=== PATIENT | male | born 1995 | race American Indian/Alaskan Native ===

== ENCOUNTER 2018-07-09 10:08 | Inpatient (IN) | payer MEDICAID ==
[2018-07-09] MEDS ORDERED: TYLENOL PO ONE ×2 (11:18→14:55)
[2018-07-09] MEDS ORDERED: NACL 0.9% 1000 ML 2,000 ML IV ONE (11:18)
--- NOTE | 2018-07-09 11:19 | Emergency Department Report ---
ED General Adult HPI - General Chief complaint: Fever Stated complaint: WEAKNESS/NOT EATING/DRINKING Time Seen by Provider: 07/09/18 11:04 Source: patient, family, RN notes reviewed Mode of arrival: Wheelchair Limitations: Physical Limitation - History of Present Illness Initial comments: This is a 23-year-old gentleman. The patient is recently transported here from [place], according to the patient and guardian. He has a past medical history of multiple sclerosis, wheelchair-bound, optional bilateral lower extremity quadriplegia, and recently had a suprapubic Arroyo catheter placed, 3-4 days ago, by urology specialist, Dr. Pugh, at [facility]. The patient is currently taking cefuroxime. He apparently missed his dose last night. He is brought to the hospital with a family member for evaluation of reported fever. He reportedly had a fever this morning to 101.9, and reportedly had a fever yesterday to 102, taken orally. The patient denies headache, neck pain, chest pain, abdominal pain, shortness of breath. He is requesting to drink cranberry juice. He reports his lower extremity weakness is not a new, worseni ng or different. He is not certain if he has taken antipyretic medication. -: days(s) (1), This morning Severity scale (0 -10): 0 Consistency: intermittent Improves with: none Worsens with: none - Related Data Home Medications Medication Instructions Recorded Confirmed Last Taken Cyclobenzaprine [Flexeril] 10 mg PO TID 07/09/18 07/09/18 Unknown Divalproex ER [DepaKOTE ER] 500 mg PO BID 07/09/18 07/09/18 07/09/18 HYDROcodone/APAP 5-325 [[place] 0.5 - 1 each PO Q6HR PRN 07/09/18 07/09/18 Unknown 5/325] Sertraline [Zoloft] 50 mg PO QDAY 07/09/18 07/09/18 07/09/18 cefUROXime [Ceftin] 500 mg PO BID 07/09/18 07/09/18 07/09/18 Allergies Allergy/AdvReac Type Severity Reaction Status Date / Time No Known Allergies Allergy Unverified 07/09/18 10:14 ED Review of Systems ROS: Stated complaint: WEAKNESS/NOT EATING/DRINKING Other details as noted in HPI Constitutional: fever. denies: chills ENT: denies: epistaxis Respiratory: denies: cough Cardiovascular: denies: chest pain Gastrointestinal: denies: abdominal pain, nausea, vomiting Musculoskeletal: denies: back pain Neurological: weakness ED Past Medical Hx - Past Medical History Previous Medical History?: Yes Additional medical history: MS - Surgical History Past Surgical History?: Yes Additional Surgical History: Suprapubic catheter placement 2019 - Social History Smoking Status: Former Smoker Substance Use Type: None - Medications Home Medications: Home Medications Medication Instructions Recorded Confirmed Last Taken Type Cyclobenzaprine [Flexeril] 10 mg PO TID 07/09/18 07/09/18 Unknown History Divalproex ER [DepaKOTE ER] 500 mg PO BID 07/09/18 07/09/18 07/09/18 History HYDROcodone/APAP 5-325 [[place] 0.5 - 1 each PO Q6HR PRN 07/09/18 07/09/18 Unknown History 5/325] Sertraline [Zoloft] 50 mg PO QDAY 07/09/18 07/09/18 07/09/18 History cefUROXime [Ceftin] 500 mg PO BID 07/09/18 07/09/18 07/09/18 History ED Physical Exam - General Limitations: Physical Limitation General appearance: alert, in no apparent distress - Head Head exam: Present: atraumatic, normocephalic - Eye Eye exam: Present: normal appearance, EOMI. Absent: nystagmus - ENT ENT exam: Present: normal exam, normal orophraynx, mucous membranes moist, normal external ear exam - Neck Neck exam: Present: normal inspection, full ROM. Absent: tenderness, meningismus - Respiratory Respiratory exam: Present: normal lung sounds bilaterally. Absent: respiratory distress - Cardiovascular Cardiovascular Exam: Present: normal rhythm, tachycardia, normal heart sounds. Absent: systolic murmur, diastolic murmur, rubs, gallop - GI/Abdominal GI/Abdominal exam: Present: soft. Absent: distended, tenderness, guarding, rebound, rigid, pulsatile mass - Rectal Rectal exam: Present: deferred - Extremities Exam Extremities exam: Present: normal inspection, full ROM (there is weakness in the bilateral lower extremities. There is fatigable bilateral lower extremity clonus in the bilateral lower extremities), other (2+ pulses noted in the bilateral upper, lower extremities. Compartments soft. No long bony tend erness. The pelvis is stable.). Absent: calf tenderness - Back Exam Back exam: Present: normal inspection, full ROM. Absent: tenderness, CVA tenderness (R), paraspinal tenderness, vertebral tenderness - Neurological Exam Neurological exam: Present: alert, motor sensory deficit, other (5 out of 5 strength bilateral upper extremities. Sensation intact to light touch bilateral upper extremities. There is no facial droop. The tongue is midline. Extraocular movements are intact bilaterally.) - Psychiatric Psychiatric exam: Present: normal affect, normal mood - Skin Skin exam: Present: warm, dry, intact, normal color. Absent: rash ED Course Vital Signs 07/09/18 07/09/18 07/09/18 10:20 12:00 13:14 Temperature 98.2 F 99.9 F H Pulse Rate 109 H 101 H Respiratory 18 24 Rate Blood Pressure 108/70 Blood Pressure 111/72 [Left] O2 Sat by Pulse 98 96 Oximetry 07/09/18 14:48 Temperature 103.6 F H Pulse Rate 80 Respiratory 16 Rate Blood Pressure Blood Pressure 141/81 [Left] O2 Sat by Pulse 98 Oximetry - Reevaluation(s) Reevaluation #1: 07/09/18 12:38 Differential diagnosis, including but not limited to: Pneumonia, urinary tract infection, intra-abdominal abscess, bacteremia, viremia Assessment and plan: 23-year-old gentleman status post recent suprapubic Arroyo catheter placement, with reported fever. The patient is afebrile, with tachycardia in this emergency room, otherwise, no significant physical exam findings. He is resting comfortably, and in no acute distress. We will obtain basic laboratory studies, urinalysis, x-ray of the chest, CT scan of the abdomen pelvis, and we will reassess. The patient was strongly encouraged to remain compliant with his medications. The patient verbalized understanding in his own words. Reevaluation #2: 07/09/18 13:03 Patient reportedly difficult stick for the phlebotomy team. Nursing team was able to establish a 20-gauge IV in the left hand. I have made multiple requests of the phlebotomy staff to please obtain the patient's laboratory studies. I have also brought this nurse's attention, to secure blood acquisition. Reevaluation #3: 07/09/18 13:34 Nursing T reported to me that patient removed/discontinued his IV, probably by accident. I went back to reevaluate the patient, and he was noted to be moving his upper extremities, and was able to stop moving his upper extremities in response to verbal direction. I have advised the patient to refrain from jerking, moving his upper extremities, and have recommended IV fluids, as well as antibiotics. Reevaluation #4: 07/09/18 14:07 Dr Cates to admit patient will remain in er pending ct results i have agreed to contact the covering urology service back if the ct results show any condition that would require emergent surgical intervention Reevaluation #5: 07/09/18 15:28 CT scan of the abdomen and pelvis suggests left-sided pyelonephritis, without abscess. Resting comfortably, and in no acute distress. Family is updated. - Consultations Consultation #1: 07/09/18 13:51 Discussed case and findings with urology on-call, Dr. Lewis, whose group agrees to follow in consultation. ED Medical Decision Making - Lab Data Result diagrams: 07/09/18 13:03 07/09/18 12:16 Vital Signs 07/09/18 10:20 Temperature 98.2 F Pulse Rate 109 H Respiratory 18 Rate Blood Pressure 108/70 O2 Sat by Pulse 98 Oximetry - Radiology Data Radiology results: pending, report reviewed X-ray the chest is negative for acute disease Critical care attestation.: If time is entered above; I have spent that time in minutes in the direct care of this critically ill patient, excluding procedure time. ED Disposition Clinical Impression: SIRS (systemic inflammatory response syndrome), Postoperative fever Disposition: OP ADMIT IP TO THIS HOSP Is pt being admited?: Yes Condition: Good
--- NOTE | 2018-07-09 12:16 | XRay Report ---
PORTABLE CHEST INDICATION: History of fever. COMPARISON: None similar at this institution. FINDINGS: Portable, frontal chest radiograph suggest normal cardiomediastinal silhouette. Clear lungs. Right hemidiaphragm slightly higher than the left. Intact bones. CONCLUSION: No acute disease. Thank you for the opportunity to participate in this patient's care.
[2018-07-09 12:53] LABS: Bacteria,Urine 2+ /HPF (Negative); Bilirubin,Urine NEG (Negative); Blood,Urine MOD (Negative); Color,Urine Yellow (Yellow); Mucus,Urine FEW /HPF; Urobilinogen,Urine < 2.0 mg/dL (<2.0)
[2018-07-09 13:07] LABS: Alanine Aminotransferase 12 units/L (7-56); Albumin 4.2 g/dL (3.9-5); BUN/Creatinine Ratio 13; Blood Urea Nitrogen 9 mg/dL (9-20); Calcium 8.9 mg/dL (8.4-10.2); Hemolysis Index 25
[2018-07-09 13:25] LABS: Basophils % (Auto) 0.2 % (0.0-1.8); Eosinophils % (Auto) 0.1 % (0.0-4.3); Hematocrit 37.8 % (35.5-45.6); Hemoglobin 12.9 gm/dl (11.8-15.2); Lymphocytes # (Auto) 1.3 K/mm3 (1.2-5.4); Lymphocytes % (Auto) 8.8 % (13.4-35.0); Mean Corpuscular HGB Conc 34 % (32-34); Mean Corpuscular Volume 80 fl (84-94); Monocytes # (Auto) 2.1 K/mm3 (0.0-0.8); Monocytes % (Auto) 13.9 % (0.0-7.3); Platelet Count 219 K/mm3 (140-440); Red Blood Count 4.72 M/mm3 (3.65-5.03); Red Cell Distribution Width 15.1 % (13.2-15.2)
[2018-07-09] MEDS ORDERED: ROCEPHIN/NS 1 GM/50 ML 1 GM/50 ML BAG IV ONE (13:34)
[2018-07-09] MEDS ORDERED: TYLENOL ONE (14:56)
--- NOTE | 2018-07-09 15:06 | Cat Scan Report ---
CT ABDOMEN AND PELVIS WITH CONTRAST INDICATION: History of fever, recent suprapubic Arroyo catheter. COMPARISON: None similar. FINDINGS: Abdomen and pelvis CT performed following intravenous administration of 100 cc of Omnipaque 300. LUNG BASES: Nonspecific distal esophageal wall prominence/thickening, not excluded for gastroesophageal reflux and/or hiatal hernia, amongst others. ABDOMEN: Liver, spleen, gallbladder, pancreas, adrenals, aorta and IVC within normal limits. No hydronephrosis, though heterogeneous left renal cortical enhancement with somewhat striated appearance noted, most involving its upper to mid renal aspect as on delayed series 4, axial images 19-30 with the largest confluent area superolaterally approximately 4 cm on axial image 23. Other etiologies however, including neoplastic/lymphoma may occasionally mimic this appearance. Right kidney appears grossly within normal limits. Nonopacified GI tract evaluation limited, though small bowel nonobstructive. Cecum somewhat low-lying in the right lower quadrant. Normal appendix. Moderate colonic stool, greatest proximally/possible constipation. No ascites or definite size significant adenopathy. Small fat containing umbilical hernia with a transverse neck of 1.5 cm, axial image 102. PELVIS: Urinary bladder decompressed around 2 Arroyo catheter balloons, one from a suprapubic catheter with mild adjacent iatrogenic changes as stranding and minimal anterior wall soft tissue air while the other catheter inserted through the urethra. Grossly unremarkable rectosigmoid. No free fluid or significant adenopathy. Intact bones. CONCLUSION: 1. Heterogeneous left kidney, presumably pyelonephritis in the given setting, as described above. 2. Various other findings as distal esophageal thickening, constipation and 2 Arroyo catheters, as above. Thank you for the opportunity to participate in this patient's care.
--- NOTE | 2018-07-09 17:17 | Consultation ---
History of Present Illness - Reason for Consult Consult date: 07/09/18 - History of Present Illness This is a 23-year-old gentleman. The patient is recently transported here from [place], according to the patient and guardian. He has a past medical history of multiple sclerosis, wheelchair-bound, optional bilateral lower extremity quadriplegia, and recently had a suprapubic [place] catheter placed 07-06-[address] Clinton in our group at [facility]. The patient is currently taking cefuroxime. He apparently missed his dose last night. He is brought to the hospital with a family member for evaluation of reported fever. He reportedly had a fever this morning to 101.9, and reportedly had a fever yesterday to 102, taken orally. MOther at bedside spt clamped, canales draining fredrick urine abd soft CTAP - left kidney inflammation a/P multiple sclerosis neurogenic bladder with canales & spt conservative mgmt Medications and Allergies Allergies Allergy/AdvReac Type Severity Reaction Status Date / Time No Known Allergies Allergy Unverified 07/09/18 10:14 Home Medications Medication Instructions Recorded Confirmed Last Taken Type Cyclobenzaprine [Flexeril] 10 mg PO TID 07/09/18 07/09/18 Unknown History Divalproex ER [DepaKOTE ER] 500 mg PO BID 07/09/18 07/09/18 07/09/18 History HYDROcodone/APAP 5-325 [[place] 0.5 - 1 each PO Q6HR PRN 07/09/18 07/09/18 Unknown History 5/325] Sertraline [Zoloft] 50 mg PO QDAY 07/09/18 07/09/18 07/09/18 History cefUROXime [Ceftin] 500 mg PO BID 07/09/18 07/09/18 07/09/18 History traZODone 100 mg PO HS 07/09/18 07/09/18 Unknown History Exam - Constitutional Vitals: Temp Pulse Resp BP Pulse Ox 102.9 F H 125 H 20 115/63 100 07/09/18 15:47 07/09/18 15:47 07/09/18 15:47 07/09/18 15:47 07/09/18 15:47 Results - Labs CBC & Chem 7: 07/09/18 13:03 07/09/18 12:16 Labs: Abnormal lab results 07/09/18 07/09/18 07/09/18 Range/Units 11:37 12:16 12:16 WBC (4.5-11.0) K/mm3 MCV (84-94) fl MCH (28-32) pg Lymph % (Auto) (13.4-35.0) % [place] % (Auto) (0.0-7.3) % [place] # (0.0-0.8) K/mm3 Seg Neutrophils % (40.0-70.0) % Seg Neutrophils # (1.8-7.7) K/mm3 Chloride 95.1 L (98-107) mmol/L Creatinine 0.7 L (0.8-1.5) mg/dL Lactic Acid (0.7-2.0) mmol/L Magnesium 2.40 H (1.7-2.3) mg/dL Total Creatine Kinase 1261 H (55-170) units/L Urine WBC (Auto) 109.0 H (0.0-6.0) /HPF Valproic Acid 38.7 L (50-100) ug/mL 07/09/18 07/09/18 07/09/18 Range/Units 13:03 13:03 15:50 WBC 15.3 H (4.5-11.0) K/mm3 MCV 80 L (84-94) fl MCH 27 L (28-32) pg Lymph % (Auto) 8.8 L (13.4-35.0) % [place] % (Auto) 13.9 H (0.0-7.3) % [place] # 2.1 H (0.0-0.8) K/mm3 Seg Neutrophils % 77.0 H (40.0-70.0) % Seg Neutrophils # 11.8 H (1.8-7.7) K/mm3 Chloride (98-107) mmol/L Creatinine (0.8-1.5) mg/dL Lactic Acid 2.60 H* 2.10 H* (0.7-2.0) mmol/L Magnesium (1.7-2.3) mg/dL Total Creatine Kinase (55-170) units/L Urine WBC (Auto) (0.0-6.0) /HPF Valproic Acid (50-100) ug/mL
[2018-07-09] MEDS ORDERED: ZOFRAN IV PRN (19:37)
[2018-07-09] MEDS ORDERED: DILAUDID IV PRN (19:37)
[2018-07-09] MEDS ORDERED: SODIUM CHLORIDE FLUSH SYRINGE 10 ML IV PRN (19:37)
[2018-07-09] MEDS: D5NS 1,000 ML IV SCH (20:47)
[2018-07-09] MEDS: ROCEPHIN/NS 2 GM/100 ML 2 GM/100 ML BAG IV SCH (20:48)
[2018-07-09] MEDS: PEPCID IV SCH (21:03)
[2018-07-09] MEDS: SODIUM CHLORIDE FLUSH SYRINGE 10 ML IV SCH (22:03)
[2018-07-09] MEDS: TYLENOL PO PRN (23:40)
[2018-07-10 06:56] LABS: Hematocrit 37.7 % (35.5-45.6); Hemoglobin 12.6 gm/dl (11.8-15.2); Mean Corpuscular HGB Conc 34 % (32-34); Mean Corpuscular Volume 80 fl (84-94); Platelet Count 226 K/mm3 (140-440); Red Cell Distribution Width 15.6 % (13.2-15.2)
[2018-07-10 07:18] LABS: Alanine Aminotransferase 17 units/L (7-56); Albumin 3.5 g/dL (3.9-5); BUN/Creatinine Ratio 10; Blood Urea Nitrogen 6 mg/dL (9-20); Calcium 8.6 mg/dL (8.4-10.2); Hemolysis Index 6
--- NOTE | 2018-07-10 07:38 | Event Note ---
Date: 07/09/18 See dictated H./p in reports Severe UTI Multiple sclerosis with paraplegia SPC catheter
[2018-07-10 08:40] LABS: Band Neutrophils # (Manual) 1.4 K/mm3; Eosinophils % (Manual) 0 % (0.0-4.3); Total Cells Counted 100
[2018-07-10 08:50] LABS: Basophils % (Manual) 0 % (0.0-1.8)
[2018-07-10 08:51] LABS: RBC Morphology Normal
[2018-07-10] MEDS: D5NS 1,000 ML IV SCH (09:32)
[2018-07-10] MEDS: PEPCID IV SCH ×2 (09:34→21:44)
[2018-07-10] MEDS: SODIUM CHLORIDE FLUSH SYRINGE 10 ML IV SCH ×2 (09:35→21:47)
--- NOTE | 2018-07-10 09:49 | History and Physical Report ---
CHIEF COMPLAINT: Fever for 2 days. HISTORY OF PRESENT ILLNESS: A 23-year-old -[place] male with history of severe multiple sclerosis, resulting in paraplegia and neurogenic bladder followed by suprapubic catheter, comes in for fever of 2 days' duration. The patient had a Arroyo catheter placed 3-4 days ago by Urology, Dr. Clinton. The patient is on cefuroxime for urinary tract infection. The patient has been having high-grade fever since yesterday. No chills. The patient has lower extremity weakness secondary to multiple sclerosis and is wheelchair bound. PAST MEDICAL HISTORY: Past medical history is significant for multiple sclerosis and neurogenic bladder. PAST SURGICAL HISTORY: Suprapubic catheter placement in 2019. SOCIAL HISTORY: Former smoker. FAMILY HISTORY: Noncontributory. REVIEW OF SYSTEMS: Review of systems is significant for high grade fever. PHYSICAL EXAMINATION: GENERAL: Young male, cooperative during examination. VITAL SIGNS: Blood pressure is 141/81, temperature is 103.6, pulse is 80, respirations are 16. HEENT: Unremarkable. Pupils are equal and reactive. NECK: Supple, no lymphadenopathy, no thyromegaly. LUNGS: Clear to auscultation and percussion. Good air entry. CARDIOVASCULAR: S1, S2 heard. No gallop, no murmur, no rub. Apical impulse in left fifth intercostal space and midclavicular line. ABDOMEN: Soft and benign. No hepatosplenomegaly. No guarding, no rigidity. Suprapubic catheter is in place. EXTREMITIES: 1/5 power in both lower extremities. Reflexes are decreased. SKIN: Normal. LABORATORY DATA AND IMAGING STUDIES: Labs are significant for lactic acid of 2.1 and the white count of 15,300. Platelet count is 219,000. Urine shows white blood cells of 109. Abdominal CAT scan shows left kidney, possible pyelonephritis. ASSESSMENT AND PLAN: 1. Sepsis secondary to urinary tract infection. The patient is initiated on ceftriaxone, pending urine cultures. 2. Neurogenic bladder. Urology consulted. 3. Elevated lactic acid secondary to sepsis. 4. Rhabdomyolysis, mild. IV fluids for now. 5. Deep venous thrombosis prophylaxis. Lovenox 30 mg subcutaneous daily. [facility]# [id number] VSM/NTS
[2018-07-10] MEDS: MIRALAX 3350 PO SCH ×2 (12:14→21:46)
--- NOTE | 2018-07-10 12:34 | Progress Note ---
Assessment and Plan Assessment and plan: Complicated UTI/Pyelonephritis left Admitted to Med/Surg [facility] patient evaluated by Dr. Lewis Consult ID Physician since complicated UTI/pyelo with suprapubic Urine culture, growing gram-negative rods Possible sepsis Blood cultures drawn Multiple sclerosis with neurogenic bladder, impaired vision, paraplegia. supportive care Neurogenic bladder, s/p suprapubic catheter placed Full code status History Interval history: Fever, has suprapubic catheter Hospitalist Physical - Physical exam Narrative exam: GEN: Not in acute distress, HEENT: Normocephalic, atraumatic, Neck: supple, No JVD Lungs: Clear to auscultation bilaterally, Abd:soft, non tender, suprapubic catheter, normal bowel sounds Ext: No edema, no clubbing, no cyanosis Neuro:Awake,alert,oriented x 3, paraplegia from MS, Impaired vision Skin:No rash - Constitutional Vitals: Temp Pulse Resp BP Pulse Ox 97.7 F 69 16 107/80 100 07/10/18 05:43 07/10/18 05:43 07/10/18 05:43 07/10/18 05:43 07/10/18 05:43 Results - Labs CBC & Chem 7: 07/10/18 06:19 07/10/18 06:19 Labs: Laboratory Last Values WBC 8.7 K/mm3 (4.5-11.0) 07/10/18 06:19 RBC 4.70 M/mm3 (3.65-5.03) 07/10/18 06:19 Hgb 12.6 gm/dl (11.8-15.2) 07/10/18 06:19 Hct 37.7 % (35.5-45.6) 07/10/18 06:19 MCV 80 fl (84-94) L 07/10/18 06:19 MCH 27 pg (28-32) L 07/10/18 06:19 MCHC 34 % (32-34) 07/10/18 06:19 RDW 15.6 % (13.2-15.2) H 07/10/18 06:19 Plt Count 226 K/mm3 (140-440) 07/10/18 06:19 Lymph % (Auto) 8.8 % (13.4-35.0) L 07/09/18 13:03 [place] % (Auto) Pastrycook'S Assistant 07/10/18 06:19 Eos % (Auto) 0.1 % (0.0-4.3) 07/09/18 13:03 Baso % (Auto) 0.2 % (0.0-1.8) 07/09/18 13:03 Lymph # 1.3 K/mm3 (1.2-5.4) 07/09/18 13:03 [place] # 2.1 K/mm3 (0.0-0.8) H 07/09/18 13:03 Eos # 0.0 K/mm3 (0.0-0.4) 07/09/18 13:03 Baso # 0.0 K/mm3 (0.0-0.1) 07/09/18 13:03 Add Manual Diff Complete 07/10/18 06:19 Total Counted 100 07/10/18 06:19 Seg Neutrophils % 77.0 % (40.0-70.0) H 07/09/18 13:03 Seg Neuts % (Manual) 59.0 % (40.0-70.0) 07/10/18 06:19 Band Neutrophils % 16.0 % 07/10/18 06:19 Lymphocytes % (Manual) 12.0 % (13.4-35.0) L 07/10/18 06:19 Reactive Lymphs % (Man) 0 % 07/10/18 06:19 Monocytes % (Manual) 13.0 % (0.0-7.3) H 07/10/18 06:19 Eosinophils % (Manual) 0 % (0.0-4.3) 07/10/18 06:19 Basophils % (Manual) 0 % (0.0-1.8) 07/10/18 06:19 Metamyelocytes % 0 % 07/10/18 06:19 Myelocytes % 0 % 07/10/18 06:19 Promyelocytes % 0 % 07/10/18 06:19 Blast Cells % 0 % 07/10/18 06:19 Nucleated RBC % Not Reportable 07/10/18 06:19 Seg Neutrophils # 11.8 K/mm3 (1.8-7.7) H 07/09/18 13:03 Seg Neutrophils # Man 5.1 K/mm3 (1.8-7.7) 07/10/18 06:19 Band Neutrophils # 1.4 K/mm3 07/10/18 06:19 Lymphocytes # (Manual) 1.0 K/mm3 (1.2-5.4) L 07/10/18 06:19 Abs React Lymphs (Man) 0.0 K/mm3 07/10/18 06:19 Monocytes # (Manual) 1.1 K/mm3 (0.0-0.8) H 07/10/18 06:19 Eosinophils # (Manual) 0.0 K/mm3 (0.0-0.4) 07/10/18 06:19 Basophils # (Manual) 0.0 K/mm3 (0.0-0.1) 07/10/18 06:19 Metamyelocytes # 0.0 K/mm3 07/10/18 06:19 Myelocytes # 0.0 K/mm3 07/10/18 06:19 Promyelocytes # 0.0 K/mm3 07/10/18 06:19 Blast Cells # 0.0 K/mm3 07/10/18 06:19 WBC Morphology Not Reportable 07/10/18 06:19 Hypersegmented Neuts Not Reportable 07/10/18 06:19 Hyposegmented Neuts Not Reportable 07/10/18 06:19 Hypogranular Neuts Not Reportable 07/10/18 06:19 Smudge Cells Not Reportable 07/10/18 06:19 Toxic Granulation Not Reportable 07/10/18 06:19 Toxic Vacuolation Not Reportable 07/10/18 06:19 Dohle Bodies Not Reportable 07/10/18 06:19 Pelger-Huet Anomaly Not Reportable 07/10/18 06:19 Sammi Rods Not Reportable 07/10/18 06:19 Platelet Estimate Not Reportable 07/10/18 06:19 Clumped Platelets Not Reportable 07/10/18 06:19 Plt Clumps, EDTA Not Reportable 07/10/18 06:19 Large Platelets Not Reportable 07/10/18 06:19 Giant Platelets Not Reportable 07/10/18 06:19 Platelet Satelliting Not Reportable 07/10/18 06:19 Plt Morphology Comment Not Reportable 07/10/18 06:19 RBC Morphology Normal 07/10/18 06:19 Dimorphic RBCs Not Reportable 07/10/18 06:19 Polychromasia Not Reportable 07/10/18 06:19 Hypochromasia Not Reportable 07/10/18 06:19 Poikilocytosis Not Reportable 07/10/18 06:19 Anisocytosis Not Reportable 07/10/18 06:19 Microcytosis Not Reportable 07/10/18 06:19 Macrocytosis Not Reportable 07/10/18 06:19 Spherocytes Not Reportable 07/10/18 06:19 Pappenheimer Bodies Not Reportable 07/10/18 06:19 Sickle Cells Not Reportable 07/10/18 06:19 Target Cells Not Reportable 07/10/18 06:19 Tear Drop Cells Not Reportable 07/10/18 06:19 Ovalocytes Not Reportable 07/10/18 06:19 Helmet Cells Not Reportable 07/10/18 06:19 [place] Bodies Not Reportable 07/10/18 06:19 [place] Rings Not Reportable 07/10/18 06:19 [place] Cells Not Reportable 07/10/18 06:19 Bite Cells Not Reportable 07/10/18 06:19 Crenated Cell Not Reportable 07/10/18 06:19 Elliptocytes Not Reportable 07/10/18 06:19 Acanthocytes (Spur) Not Reportable 07/10/18 06:19 Rouleaux Not Reportable 07/10/18 06:19 Hemoglobin C Crystals Not Reportable 07/10/18 06:19 Schistocytes Not Reportable 07/10/18 06:19 Malaria parasites Not Reportable 07/10/18 06:19 [place] Bodies Not Reportable 07/10/18 06:19 Hem Pathologist Commnt No 07/10/18 06:19 Sodium 143 mmol/L (137-145) 07/10/18 06:19 Potassium 3.6 mmol/L (3.6-5.0) 07/10/18 06:19 Chloride 101.5 mmol/L (98-107) 07/10/18 06:19 Carbon Dioxide 30 mmol/L (22-30) 07/10/18 06:19 Anion Gap 15 mmol/L 07/10/18 06:19 BUN 6 mg/dL (9-20) L 07/10/18 06:19 Creatinine 0.6 mg/dL (0.8-1.5) L 07/10/18 06:19 Estimated GFR > 60 ml/min 07/10/18 06:19 BUN/Creatinine Ratio 10 % 07/10/18 06:19 Glucose 109 mg/dL (75-100) H 07/10/18 06:19 Lactic Acid 2.10 mmol/L (0.7-2.0) H* 07/09/18 17:07 Calcium 8.6 mg/dL (8.4-10.2) 07/10/18 06:19 Magnesium 2.40 mg/dL (1.7-2.3) H 07/09/18 12:16 Total Bilirubin 0.20 mg/dL (0.1-1.2) 07/10/18 06:19 AST 29 units/L (5-40) 07/10/18 06:19 ALT 17 units/L (7-56) 07/10/18 06:19 Alkaline Phosphatase 60 units/L (35-129) 07/10/18 06:19 Total Creatine Kinase 1261 units/L (55-170) H 07/09/18 12:16 Total Protein 7.0 g/dL (6.3-8.2) 07/10/18 06:19 Albumin 3.5 g/dL (3.9-5) L 07/10/18 06:19 Albumin/Globulin Ratio 1.0 % 07/10/18 06:19 Urine Color Yellow (Yellow) 07/09/18 11:37 Urine Turbidity Cloudy (Clear) 07/09/18 11:37 Urine pH 7.0 (5.0-7.0) 07/09/18 11:37 Ur Specific [place] 1.008 (1.003-1.030) 07/09/18 11:37 Urine Protein 100 mg/dl mg/dL (Negative) 07/09/18 11:37 Urine Glucose (UA) Neg mg/dL (Negative) 07/09/18 11:37 Urine Ketones Neg mg/dL (Negative) 07/09/18 11:37 Urine Blood Mod (Negative) 07/09/18 11:37 Urine Nitrite Neg (Negative) 07/09/18 11:37 Urine Bilirubin Neg (Negative) 07/09/18 11:37 Urine Urobilinogen < 2.0 mg/dL (<2.0) 07/09/18 11:37 Ur Leukocyte Esterase Lg (Negative) 07/09/18 11:37 Urine WBC (Auto) 109.0 /HPF (0.0-6.0) H 07/09/18 11:37 Urine RBC (Auto) 28.0 /HPF (0.0-6.0) 07/09/18 11:37 U Epithel Cells (Auto) < 1.0 /HPF (0-13.0) 07/09/18 11:37 Urine Bacteria (Auto) 2+ /HPF (Negative) 07/09/18 11:37 Urine Mucus Few /HPF 07/09/18 11:37 Urine Yeast (Budding) 2+ /HPF 07/09/18 11:37 Valproic Acid 38.7 ug/mL (50-100) L 07/09/18 12:16
[2018-07-10] MEDS: ROCEPHIN/NS 2 GM/100 ML 2 GM/100 ML BAG IV SCH (20:32)
[2018-07-10] MEDS: LOVENOX SUB-Q SCH (21:44)
[2018-07-11] MEDS: TYLENOL PO PRN (00:45)
[2018-07-11 06:35] LABS: Hematocrit 36.2 % (35.5-45.6); Hemoglobin 12.3 gm/dl (11.8-15.2); Mean Corpuscular HGB Conc 34 % (32-34); Mean Corpuscular Volume 80 fl (84-94); Platelet Count 259 K/mm3 (140-440); Red Blood Count 4.55 M/mm3 (3.65-5.03); Red Cell Distribution Width 15.1 % (13.2-15.2)
[2018-07-11 07:09] LABS: BUN/Creatinine Ratio 12; Blood Urea Nitrogen 6 mg/dL (9-20); Calcium 8.8 mg/dL (8.4-10.2); Hemolysis Index 3
--- NOTE | 2018-07-11 09:18 | Progress Note ---
Assessment and Plan Assessment and plan: Complicated UTI/Pyelonephritis left Admitted to Med/Surg Continue Braydonmafaraz patient evaluated by Dr. Lewis Consult ID Physician since complicated UTI/pyelo with suprapubic Urine culture, growing gram-negative rods, Pseudomonas aurigonosa Start Cefepime, discontinue ceftriaxone Sepsis Blood cultures drawn Start Cefepime Multiple sclerosis with neurogenic bladder, impaired vision, paraplegia. supportive care Neurogenic bladder, s/p suprapubic catheter placed 07/06/[address] Clinton, clamped. another canales catheter in penis to draining bag. Hypokalemia. Replace orally and recheck Full code status History Interval history: Still having Fever, has suprapubic catheter clamped and canales catheter in urethra Hospitalist Physical - Physical exam Narrative exam: GEN: Not in acute distress, HEENT: Normocephalic, atraumatic, Neck: supple, No JVD Lungs: Clear to auscultation bilaterally, Abd:soft, non tender, suprapubic catheter clamped, normal bowel sounds : Canales catheter Ext: No edema, no clubbing, no cyanosis Neuro:Awake,alert,oriented x 3, paraplegia from MS, Impaired vision Skin:No rash - Constitutional Vitals: Temp Pulse Resp BP Pulse Ox 98.0 F 71 20 123/86 99 07/11/18 05:39 07/11/18 05:39 07/11/18 05:39 07/11/18 05:39 07/11/18 05:39 Results - Labs CBC & Chem 7: 07/11/18 05:53 07/11/18 05:53 Labs: Laboratory Last Values WBC 6.4 K/mm3 (4.5-11.0) 07/11/18 05:53 RBC 4.55 M/mm3 (3.65-5.03) 07/11/18 05:53 Hgb 12.3 gm/dl (11.8-15.2) 07/11/18 05:53 Hct 36.2 % (35.5-45.6) 07/11/18 05:53 MCV 80 fl (84-94) L 07/11/18 05:53 MCH 27 pg (28-32) L 07/11/18 05:53 MCHC 34 % (32-34) 07/11/18 05:53 RDW 15.1 % (13.2-15.2) 07/11/18 05:53 Plt Count 259 K/mm3 (140-440) 07/11/18 05:53 Lymph % (Auto) 8.8 % (13.4-35.0) L 07/09/18 13:03 [place] % (Auto) [place] 07/10/18 06:19 Eos % (Auto) 0.1 % (0.0-4.3) 07/09/18 13:03 Baso % (Auto) 0.2 % (0.0-1.8) 07/09/18 13:03 Lymph # 1.3 K/mm3 (1.2-5.4) 07/09/18 13:03 [place] # 2.1 K/mm3 (0.0-0.8) H 07/09/18 13:03 Eos # 0.0 K/mm3 (0.0-0.4) 07/09/18 13:03 Baso # 0.0 K/mm3 (0.0-0.1) 07/09/18 13:03 Add Manual Diff Complete 07/10/18 06:19 Total Counted 100 07/10/18 06:19 Seg Neutrophils % 77.0 % (40.0-70.0) H 07/09/18 13:03 Seg Neuts % (Manual) 59.0 % (40.0-70.0) 07/10/18 06:19 Band Neutrophils % 16.0 % 07/10/18 06:19 Lymphocytes % (Manual) 12.0 % (13.4-35.0) L 07/10/18 06:19 Reactive Lymphs % (Man) 0 % 07/10/18 06:19 Monocytes % (Manual) 13.0 % (0.0-7.3) H 07/10/18 06:19 Eosinophils % (Manual) 0 % (0.0-4.3) 07/10/18 06:19 Basophils % (Manual) 0 % (0.0-1.8) 07/10/18 06:19 Metamyelocytes % 0 % 07/10/18 06:19 Myelocytes % 0 % 07/10/18 06:19 Promyelocytes % 0 % 07/10/18 06:19 Blast Cells % 0 % 07/10/18 06:19 Nucleated RBC % Not Reportable 07/10/18 06:19 Seg Neutrophils # 11.8 K/mm3 (1.8-7.7) H 07/09/18 13:03 Seg Neutrophils # Man 5.1 K/mm3 (1.8-7.7) 07/10/18 06:19 Band Neutrophils # 1.4 K/mm3 07/10/18 06:19 Lymphocytes # (Manual) 1.0 K/mm3 (1.2-5.4) L 07/10/18 06:19 Abs React Lymphs (Man) 0.0 K/mm3 07/10/18 06:19 Monocytes # (Manual) 1.1 K/mm3 (0.0-0.8) H 07/10/18 06:19 Eosinophils # (Manual) 0.0 K/mm3 (0.0-0.4) 07/10/18 06:19 Basophils # (Manual) 0.0 K/mm3 (0.0-0.1) 07/10/18 06:19 Metamyelocytes # 0.0 K/mm3 07/10/18 06:19 Myelocytes # 0.0 K/mm3 07/10/18 06:19 Promyelocytes # 0.0 K/mm3 07/10/18 06:19 Blast Cells # 0.0 K/mm3 07/10/18 06:19 WBC Morphology Not Reportable 07/10/18 06:19 Hypersegmented Neuts Not Reportable 07/10/18 06:19 Hyposegmented Neuts Not Reportable 07/10/18 06:19 Hypogranular Neuts Not Reportable 07/10/18 06:19 Smudge Cells Not Reportable 07/10/18 06:19 Toxic Granulation Not Reportable 07/10/18 06:19 Toxic Vacuolation Not Reportable 07/10/18 06:19 Dohle Bodies Not Reportable 07/10/18 06:19 Pelger-Huet Anomaly Not Reportable 07/10/18 06:19 Sammi Rods Not Reportable 07/10/18 06:19 Platelet Estimate Not Reportable 07/10/18 06:19 Clumped Platelets Not Reportable 07/10/18 06:19 Plt Clumps, EDTA Not Reportable 07/10/18 06:19 Large Platelets Not Reportable 07/10/18 06:19 Giant Platelets Not Reportable 07/10/18 06:19 Platelet Satelliting Not Reportable 07/10/18 06:19 Plt Morphology Comment Not Reportable 07/10/18 06:19 RBC Morphology Normal 07/10/18 06:19 Dimorphic RBCs Not Reportable 07/10/18 06:19 Polychromasia Not Reportable 07/10/18 06:19 Hypochromasia Not Reportable 07/10/18 06:19 Poikilocytosis Not Reportable 07/10/18 06:19 Anisocytosis Not Reportable 07/10/18 06:19 Microcytosis Not Reportable 07/10/18 06:19 Macrocytosis Not Reportable 07/10/18 06:19 Spherocytes Not Reportable 07/10/18 06:19 Pappenheimer Bodies Not Reportable 07/10/18 06:19 Sickle Cells Not Reportable 07/10/18 06:19 Target Cells Not Reportable 07/10/18 06:19 Tear Drop Cells Not Reportable 07/10/18 06:19 Ovalocytes Not Reportable 07/10/18 06:19 Helmet Cells Not Reportable 07/10/18 06:19 Bowman-Kite Bodies Not Reportable 07/10/18 06:19 [place] Rings Not Reportable 07/10/18 06:19 [place] Cells Not Reportable 07/10/18 06:19 Bite Cells Not Reportable 07/10/18 06:19 Crenated Cell Not Reportable 07/10/18 06:19 Elliptocytes Not Reportable 07/10/18 06:19 Acanthocytes (Spur) Not Reportable 07/10/18 06:19 Rouleaux Not Reportable 07/10/18 06:19 Hemoglobin C Crystals Not Reportable 07/10/18 06:19 Schistocytes Not Reportable 07/10/18 06:19 Malaria parasites Not Reportable 07/10/18 06:19 [place]ir Bodies Not Reportable 07/10/18 06:19 Hem Pathologist Commnt No 07/10/18 06:19 Sodium 141 mmol/L (137-145) 07/11/18 05:53 Potassium 3.3 mmol/L (3.6-5.0) L 07/11/18 05:53 Chloride 101.7 mmol/L (98-107) 07/11/18 05:53 Carbon Dioxide 24 mmol/L (22-30) 07/11/18 05:53 Anion Gap 19 mmol/L 07/11/18 05:53 BUN 6 mg/dL (9-20) L 07/11/18 05:53 Creatinine 0.5 mg/dL (0.8-1.5) L 07/11/18 05:53 Estimated GFR > 60 ml/min 07/11/18 05:53 BUN/Creatinine Ratio 12 % 07/11/18 05:53 Glucose 92 mg/dL (75-100) 07/11/18 05:53 Lactic Acid 2.10 mmol/L (0.7-2.0) H* 07/09/18 17:07 Calcium 8.8 mg/dL (8.4-10.2) 07/11/18 05:53 Magnesium 2.40 mg/dL (1.7-2.3) H 07/09/18 12:16 Total Bilirubin 0.20 mg/dL (0.1-1.2) 07/10/18 06:19 AST 29 units/L (5-40) 07/10/18 06:19 ALT 17 units/L (7-56) 07/10/18 06:19 Alkaline Phosphatase 60 units/L (35-129) 07/10/18 06:19 Total Creatine Kinase 1261 units/L (55-170) H 07/09/18 12:16 Total Protein 7.0 g/dL (6.3-8.2) 07/10/18 06:19 Albumin 3.5 g/dL (3.9-5) L 07/10/18 06:19 Albumin/Globulin Ratio 1.0 % 07/10/18 06:19 Urine Color Yellow (Yellow) 07/09/18 11:37 Urine Turbidity Cloudy (Clear) 07/09/18 11:37 Urine pH 7.0 (5.0-7.0) 07/09/18 11:37 Ur Specific [place] 1.008 (1.003-1.030) 07/09/18 11:37 Urine Protein 100 mg/dl mg/dL (Negative) 07/09/18 11:37 Urine Glucose (UA) Neg mg/dL (Negative) 07/09/18 11:37 Urine Ketones Neg mg/dL (Negative) 07/09/18 11:37 Urine Blood Mod (Negative) 07/09/18 11:37 Urine Nitrite Neg (Negative) 07/09/18 11:37 Urine Bilirubin Neg (Negative) 07/09/18 11:37 Urine Urobilinogen < 2.0 mg/dL (<2.0) 07/09/18 11:37 Ur Leukocyte Esterase Lg (Negative) 07/09/18 11:37 Urine WBC (Auto) 109.0 /HPF (0.0-6.0) H 07/09/18 11:37 Urine RBC (Auto) 28.0 /HPF (0.0-6.0) 07/09/18 11:37 U Epithel Cells (Auto) < 1.0 /HPF (0-13.0) 07/09/18 11:37 Urine Bacteria (Auto) 2+ /HPF (Negative) 07/09/18 11:37 Urine Mucus Few /HPF 07/09/18 11:37 Urine Yeast (Budding) 2+ /HPF 07/09/18 11:37 Valproic Acid 38.7 ug/mL (50-100) L 07/09/18 12:16
[2018-07-11] MEDS: PEPCID IV SCH ×2 (09:22→22:14)
[2018-07-11] MEDS: D5NS 1,000 ML IV SCH ×2 (09:22→22:17)
[2018-07-11] MEDS: MIRALAX 3350 PO SCH (09:22)
[2018-07-11] MEDS: K-DUR PO SCH ×2 (11:39→17:44)
[2018-07-11] MEDS: SODIUM CHLORIDE FLUSH SYRINGE 10 ML IV SCH ×2 (11:40→22:17)
[2018-07-11] MEDS: MAXIPIME/NS 2 GM/100 ML 2 GM/100 ML BAG IV SCH ×3 (11:40→22:13)
[2018-07-11] MEDS: ZOLOFT PO SCH (12:45)
[2018-07-11] MEDS: FLEXERIL PO SCH ×3 (12:45→20:46)
--- NOTE | 2018-07-11 12:48 | Consultation ---
History of Present Illness - Reason for Consult Consult date: 07/11/18 Complicated UTI Requesting physician: BRANDON ROJAS - History of Present Illness This patient is a 23 year old male with a past medical history of multiple sclerosis, wheelchair-bound, optional bilateral lower extremity quadriplegia, s/p suprapubic canales catheter placed 07-06-[address] Clinton, [facility], who was brought to the hospital on 07/09/18 for evaluation of f ever. He reportedly had a fever this morning to 101.9, and reportedly had a fever yesterday to 102, taken orally. He is currently taking cefuroxime, but missed a dose last night. On admission , WBC 15.3, Creatinine 0.7, Lactic acid 2.60, CK 1261, Highest temperature 103.6, HR 109, BP 108/70, U/A is consistent with a UTI, with large leukocyte esterase. Chest xray showed no consolidation. Abdomen and pelvis CT shows Heterogeneous left kidney, presumably pyelonephritis, Liver, spleen, gallbladder, pancreas, adrenals, aorta and IVC within normal limits. No hydronephrosis, though heterogeneous left renal cortical enhancement with somewhat striated appearance noted, Urine cultures were drawn and show Pseudomonas Aeruginosa, Blood cultures show no growth thus far. Patient states that he was diagnosed with MS in 2017 while living in [place] with his and 4 children. He was walking with a walker and attending regular physical therapy sessions. He stated that he moved to [place] a year ago to get supplemental insurance with his Mother's company. He has been unable to secure that insurance and therefore has not been getting his PT, he has been in a wheelchair bound for a year. Review of Systems: General: + fever, no chills, nightsweats, + change in appetite Cutaneous: no rash, pruritus Head: no headaches or injury Eyes: no changes in vision, eye pain, double vision Ears: no ear pain, ear discharge, ringing or hearing loss Nose: no nose bleeding, stuffiness Mouth & throat: no bleeding gums, no horseness, no dental problems, or swollen glands Neck: no pain, node enlargement/lumps, tyroid enlargement or tenderness Respiratory: +no cough, wheezing, sputum, hemoptysis, pleuritic chest pain Cardiovascular: no chest pain, leg edema, cyanosis, JULIEN, orthopnea Musculoskeletal: no decreased joint motion, bone or joint pain, joint swelling, muscle aches Gastrointestinal: no nausea, vomiting, hematemesis, diarrhea, constipation, melena, bright red blood in stools, fecal incontinence, jaundice Genitourinary: + CVA tenderness Neurogical: no seizures, no headaches, generalized weakness, + tremors Psychiatric: stable mood; no excessive anxiety, sadness or moodiness Medications and Allergies Allergies Allergy/AdvReac Type Severity Reaction Status Date / Time No Known Allergies Allergy Unverified 07/09/18 10:14 Home Medications Medication Instructions Recorded Confirmed Last Taken Type Cyclobenzaprine [Flexeril] 10 mg PO TID 07/09/18 07/09/18 Unknown History Divalproex ER [DepaKOTE ER] 500 mg PO BID 07/09/18 07/09/18 07/09/18 History HYDROcodone/APAP 5-325 [[place]obb 0.5 - 1 each PO Q6HR PRN 07/09/18 07/09/18 Unknown History 5/325] Sertraline [Zoloft] 50 mg PO QDAY 07/09/18 07/09/18 07/09/18 History cefUROXime [Ceftin] 500 mg PO BID 07/09/18 07/09/18 07/09/18 History traZODone 100 mg PO HS 07/09/18 07/09/18 Unknown History Active Meds: Active Medications Acetaminophen (Tylenol) 650 mg PO Q4H PRN PRN Reason: Pain MILD(1-3)/Fever >100.5/MORGAN Last Admin: 07/11/18 00:45 Dose: 650 mg Documented by: Cyclobenzaprine HCl (Flexeril) 10 mg PO TID [facility] Last Admin: 07/11/18 12:45 Dose: 10 mg Documented by: Divalproex Sodium (Depakote Er) 500 mg PO BID [facility] Enoxaparin Sodium (Lovenox) 40 mg SUB-Q QDAY@2200 [facility] Last Admin: 07/10/18 21:44 Dose: 40 mg Documented by: Famotidine (Pepcid) 20 mg IV BID [facility] Last Admin: 07/11/18 09:22 Dose: 20 mg Documented by: Hydromorphone HCl (Dilaudid) 0.5 mg IV Q3H PRN PRN Reason: Pain , Severe (7-10) Dextrose/Sodium Chloride (D5ns) 1,000 mls @ 75 mls/hr IV DIRECT [facility] Last Admin: 07/11/18 09:22 Dose: 75 mls/hr Documented by: Cefepime HCl (Maxipime/Ns 2 Gm/100 Ml) 2 gm in 100 mls @ 200 mls/hr IV Q8HR [facility]; Protocol Last Admin: 07/11/18 11:40 Dose: 200 mls/hr Documented by: Ondansetron HCl (Zofran) 4 mg IV Q8H PRN PRN Reason: Nausea And Vomiting Potassium Chloride (K-Dur) 40 meq PO Q6H [facility] Stop: 07/11/18 17:01 Last Admin: 07/11/18 11:39 Dose: 40 meq Documented by: Sertraline HCl (Zoloft) 50 mg PO QDAY [facility] Last Admin: 07/11/18 12:45 Dose: 50 mg Documented by: Sodium Chloride (Sodium Chloride Flush Syringe 10 Ml) 10 ml IV BID [facility] Last Admin: 07/11/18 11:40 Dose: 10 ml Documented by: Sodium Chloride (Sodium Chloride Flush Syringe 10 Ml) 10 ml IV PRN PRN PRN Reason: LINE FLUSH Trazodone HCl (Desyrel) 100 mg PO HS [facility] Physical Examination - Physical Exam Narrative exam: Constitutional: Alert, cooperative. No acute distress Head, Ears, Nose: Normocephalic, atraumatic. External ears, nose normal Eyes: Conjunctivae/corneas clear. No icterus. No ptosis. Neck: Supple, no meningeal signs Oral: dentition good, no thrush Cardiovascular: S1, S2 normal. Respiratory: Good air entry, clear to auscultation bilaterally GI: Soft, non-tender; bowel sounds normal. No peritoneal signs Gu: +suprapubic cath, clamped. + canales cath, + CVA tenderness Musculoskeletal: parapalegic, lower extremity tremors Skin: No rash or abscess. Hem/Lymphatic: No palpable cervical or supraclavicular nodes. No lymphangitis Psych: Mood ok. Affect normal Neurological: Awake, alert, oriented. - Constitutional Vitals: Vital Signs Temp Pulse Resp BP Pulse Ox 98.0 F 71 20 123/86 99 07/11/18 05:39 07/11/18 05:39 07/11/18 05:39 07/11/18 05:39 07/11/18 05:39 Temperature -Last 24 Hours Temperature 98.0 F Temperature 101.0 F Temperature 99.1 F Results - Labs CBC & Chem 7: 07/11/18 05:53 07/11/18 05:53 Labs: Abnormal lab results 07/11/18 07/11/18 Range/Units 05:53 05:53 MCV 80 L (84-94) fl MCH 27 L (28-32) pg Potassium 3.3 L (3.6-5.0) mmol/L BUN 6 L (9-20) mg/dL Creatinine 0.5 L (0.8-1.5) mg/dL Assessment and Plan Imaging 07/09/2018 Abdomen/Pelvis CT: Heterogeneous left kidney, presumably pyelonephritis, Liver, spleen, gallbladder, pancreas, adrenals, aorta and IVC within normal limits. No hydronephrosis, though heterogeneous left renal cortical enhancement with somewhat striated appearance noted, 2 canales catheters placed by urology Cultures 07/09/2018 Urine: Pseudomonas Aeruginosa 07/09/2018 Blood: no growth thus far A/P: 23--year-old male with a past medical history of multiple sclerosis, wheelchair- bound, optional bilateral lower extremity quadriplegia, s/p suprapubic canales catheter placed 07-06-[address] Clinton, [facility], now admitted with: 1. Sepsis on admission: evidenced by leukocytosis, fever, elevated lactic acid and and tachycardia, source most likely urinary tract infection. Blood culutres are pending, Chest xray show no consolidation. 2. Complicated UTI: multiople sclerosis with neurogenic bladder, papaplegia s/p admission to [facility] on 04/29/18 for UTI. Suprapubic catheter and canales catheter placed 07-06-[address] Clinton,, discharged on 05-13-18 on cefuroxime. This admission U/A is consistent with a UTI with large leukocyte esterase.. Urine cultures growing Aeruginosa. CT Abdomen and Pelvis show left pyelon ephritis. Currently being treated with Cefepime. 3. Paraplegia: wheelchair bound since 2018 4. Multiple Sclerosis: diagnosed 2016 Plan: -f/u blood cultures -f/u urine cultures -Continue Cefepime 2gms iv every 8 hours -Anticipate discharge on Cefepime 2gms IV every 8 hours for total 10 days ending 07-20-18 -Order placed with case management -midline order placed [facility] M: [phone] O:[phone]
[2018-07-11] MEDS ORDERED: NON-FORMULARY (Trazodone 100 MG) PO SCH (22:00)
[2018-07-11] MEDS: LOVENOX SUB-Q SCH (22:14)
[2018-07-11] MEDS: DESYREL PO SCH (22:15)
[2018-07-12] MEDS: MAXIPIME/NS 2 GM/100 ML 2 GM/100 ML BAG IV SCH ×3 (05:34→21:55)
[2018-07-12 06:10] LABS: BUN/Creatinine Ratio 10; Blood Urea Nitrogen 6 mg/dL (9-20); Calcium 8.7 mg/dL (8.4-10.2); Hemolysis Index 2
[2018-07-12] MEDS: FLEXERIL PO SCH ×3 (08:48→21:55)
[2018-07-12] MEDS: PEPCID IV SCH (09:43)
[2018-07-12] MEDS: ZOLOFT PO SCH (09:43)
[2018-07-12] MEDS: SODIUM CHLORIDE FLUSH SYRINGE 10 ML IV SCH ×2 (09:44→21:48)
--- NOTE | 2018-07-12 09:53 | Progress Note ---
Assessment and Plan Imaging 07/09/2018 Abdomen/Pelvis CT: Heterogeneous left kidney, presumably pyelonephritis, Liver, spleen, gallbladder, pancreas, adrenals, aorta and IVC within normal limits. No hydronephrosis, though heterogeneous left renal cortical enhancement with somewhat striated appearance noted, 2 canales catheters placed by urology Cultures 07/09/2018 Urine: Pseudomonas Aeruginosa 07/09/2018 Blood: CoNS, 1 out of 4 bottles A/P: 23--year-old male with a past medical history of multiple sclerosis, wheelchair- bound, optional bilateral lower extremity quadriplegia, s/p suprapubic canales catheter placed 07-06-[address] Clinton, [facility], now admitted with: 1. Sepsis on admission: evidenced by leukocytosis, fever, elevated lactic acid and and tachycardia, source most likely urinary tract infection. Blood culutres are pending, Chest xray show no consolidation. 2. Complicated UTI: multiple sclerosis with neurogenic bladder, paraplegia s/p admission to [facility] on 04/29/18 for UTI. Suprapubic catheter and canales catheter placed 07-06-[address] Clinton,, discharged on 05-13-18 on cefuroxime. This admission U/A is consistent with a UTI with large leukocyte esterase.. Urine cultures growing Aeruginosa. CT Abdomen and Pelvis show left pyelonephritis. Currently being treated with Cefepime. Canales catheter removed today by urology. 3. CoNS Bacteremia: 1 out of 4 bottles, likely contaminant. Will proceed with midline placement. 4. Paraplegia: wheelchair bound since 2018 5. Multiple Sclerosis: diagnosed 2016 Plan: -f/u blood cultures -f/u urine cultures -Continue Cefepime 2gms iv every 8 hours, D2 -Anticipate discharge on Cefepime 2gms IV every 8 hours for total 10 days ending -Order placed with case management -f/u ID clinic 07/22/18 -Midline order placed [facility] M: [phone] O:[phone] Subjective Date of service: 07/12/18 Interval history: Patient seen and examined. Denies generalized pain, sob or fevers . Stated that he was ready to go home today. Discharge OPAT discussed, patient verbalized understanding. Objective - Exam Narrative Exam: Constitutional: Alert, cooperative. No acute distress Head, Ears, Nose: Normocephalic, atraumatic. External ears, nose normal Eyes: Conjunctivae/corneas clear. No icterus. No ptosis. Neck: Supple, no meningeal signs Oral: dentition good, no thrush Cardiovascular: S1, S2 normal. Respiratory: Good air entry, clear to auscultation bilaterally GI: Soft, non-tender; bowel sounds normal. No peritoneal signs Gu: +suprapubic cath, clamped, canales catheter removed. CVA tenderness improved Musculoskeletal: parapalegic, lower extremity tremors Skin: No rash or abscess. Hem/Lymphatic: No palpable cervical or supraclavicular nodes. No lymphangitis Psych: Mood ok. Affect normal Neurological: Awake, alert, oriented. - Constitutional Vitals: Vital Signs Temp Pulse Resp BP Pulse Ox 98.7 F 83 20 102/61 97 07/12/18 05:01 07/12/18 05:01 07/12/18 05:01 07/12/18 05:01 07/12/18 05:01 Temperature -Last 24 Hours Temperature 98.7 F Temperature 99.3 F Temperature 98.7 F Temperature 97.6 F - Labs CBC & Chem 7: 07/11/18 05:53 07/12/18 05:34 Labs: Abnormal lab results 07/11/18 07/12/18 Range/Units 12:39 05:34 Carbon Dioxide 21 L (22-30) mmol/L BUN 6 L (9-20) mg/dL Creatinine 0.6 L (0.8-1.5) mg/dL Glucose 102 H (75-100) mg/dL Valproic Acid 4.8 L (50-100) ug/mL
--- NOTE | 2018-07-12 10:33 | Progress Note ---
Assessment and Plan Assessment and plan: Patient is 23 yo with multiple sclerosis with neurogenoic bladder. He had a canales placed months ago and had suprabupic catheter 07/06/[address] Clinton at [facility]. He presented with fever, diagnosed with sepsis due to pyelonephritis on left. He was admitted , put on Cefepime. Urine culture shows Pseudomonas and Dr. Alvarenga recommends Cefepime iv at home until 07/20/18. Today jannie Buck removed canales catheter from penis leaving suprapubic cather to drainage. Patient may dc after iv Cefepime arranged. Complicated UTI/Pyelonephritis left Admitted to Med/Surg patient evaluated by Dr. eLwis ID Physician following Urine culture, growing gram-negative rods, Pseudomonas aurigonosa Continue Cefepime Sepsis Blood cultures drawn Start Cefepime Multiple sclerosis with neurogenic bladder, impaired vision, paraplegia. supportive care Neurogenic bladder, s/p suprapubic catheter placed 07/06/[address] Clinton, clamped. another canales catheter in penis to draining bag. Hypokalemia.resolved after replacement Full code status May dc home after iv Cefepime arranged History Interval history: Still having Fever, has suprapubic catheter clamped and canales catheter in urethra Hospitalist Physical - Physical exam Narrative exam: GEN: Not in acute distress, HEENT: Normocephalic, atraumatic, Neck: supple, No JVD Lungs: Clear to auscultation bilaterally, Abd:soft, non tender, suprapubic catheter clamped, normal bowel sounds : Canales catheter Ext: No edema, no clubbing, no cyanosis Neuro:Awake,alert,oriented x 3, paraplegia from MS, Impaired vision Skin:No rash - Constitutional Vitals: Temp Pulse Resp BP Pulse Ox 98.7 F 83 20 102/61 97 07/12/18 05:01 07/12/18 05:01 07/12/18 05:01 07/12/18 05:01 07/12/18 05:01 Results - Labs CBC & Chem 7: 07/11/18 05:53 07/12/18 05:34 Labs: Laboratory Last Values WBC 6.4 K/mm3 (4.5-11.0) 07/11/18 05:53 RBC 4.55 M/mm3 (3.65-5.03) 07/11/18 05:53 Hgb 12.3 gm/dl (11.8-15.2) 07/11/18 05:53 Hct 36.2 % (35.5-45.6) 07/11/18 05:53 MCV 80 fl (84-94) L 07/11/18 05:53 MCH 27 pg (28-32) L 07/11/18 05:53 MCHC 34 % (32-34) 07/11/18 05:53 RDW 15.1 % (13.2-15.2) 07/11/18 05:53 Plt Count 259 K/mm3 (140-440) 07/11/18 05:53 Lymph % (Auto) 8.8 % (13.4-35.0) L 07/09/18 13:03 [place] % (Auto) Guest Relations Associate 07/10/18 06:19 Eos % (Auto) 0.1 % (0.0-4.3) 07/09/18 13:03 Baso % (Auto) 0.2 % (0.0-1.8) 07/09/18 13:03 Lymph # 1.3 K/mm3 (1.2-5.4) 07/09/18 13:03 [place] # 2.1 K/mm3 (0.0-0.8) H 07/09/18 13:03 Eos # 0.0 K/mm3 (0.0-0.4) 07/09/18 13:03 Baso # 0.0 K/mm3 (0.0-0.1) 07/09/18 13:03 Add Manual Diff Complete 07/10/18 06:19 Total Counted 100 07/10/18 06:19 Seg Neutrophils % 77.0 % (40.0-70.0) H 07/09/18 13:03 Seg Neuts % (Manual) 59.0 % (40.0-70.0) 07/10/18 06:19 Band Neutrophils % 16.0 % 07/10/18 06:19 Lymphocytes % (Manual) 12.0 % (13.4-35.0) L 07/10/18 06:19 Reactive Lymphs % (Man) 0 % 07/10/18 06:19 Monocytes % (Manual) 13.0 % (0.0-7.3) H 07/10/18 06:19 Eosinophils % (Manual) 0 % (0.0-4.3) 07/10/18 06:19 Basophils % (Manual) 0 % (0.0-1.8) 07/10/18 06:19 Metamyelocytes % 0 % 07/10/18 06:19 Myelocytes % 0 % 07/10/18 06:19 Promyelocytes % 0 % 07/10/18 06:19 Blast Cells % 0 % 07/10/18 06:19 Nucleated RBC % Not Reportable 07/10/18 06:19 Seg Neutrophils # 11.8 K/mm3 (1.8-7.7) H 07/09/18 13:03 Seg Neutrophils # Man 5.1 K/mm3 (1.8-7.7) 07/10/18 06:19 Band Neutrophils # 1.4 K/mm3 07/10/18 06:19 Lymphocytes # (Manual) 1.0 K/mm3 (1.2-5.4) L 07/10/18 06:19 Abs React Lymphs (Man) 0.0 K/mm3 07/10/18 06:19 Monocytes # (Manual) 1.1 K/mm3 (0.0-0.8) H 07/10/18 06:19 Eosinophils # (Manual) 0.0 K/mm3 (0.0-0.4) 07/10/18 06:19 Basophils # (Manual) 0.0 K/mm3 (0.0-0.1) 07/10/18 06:19 Metamyelocytes # 0.0 K/mm3 07/10/18 06:19 Myelocytes # 0.0 K/mm3 07/10/18 06:19 Promyelocytes # 0.0 K/mm3 07/10/18 06:19 Blast Cells # 0.0 K/mm3 07/10/18 06:19 WBC Morphology Not Reportable 07/10/18 06:19 Hypersegmented Neuts Not Reportable 07/10/18 06:19 Hyposegmented Neuts Not Reportable 07/10/18 06:19 Hypogranular Neuts Not Reportable 07/10/18 06:19 Smudge Cells Not Reportable 07/10/18 06:19 Toxic Granulation Not Reportable 07/10/18 06:19 Toxic Vacuolation Not Reportable 07/10/18 06:19 Dohle Bodies Not Reportable 07/10/18 06:19 Pelger-Huet Anomaly Not Reportable 07/10/18 06:19 Sammi Rods Not Reportable 07/10/18 06:19 Platelet Estimate Not Reportable 07/10/18 06:19 Clumped Platelets Not Reportable 07/10/18 06:19 Plt Clumps, EDTA Not Reportable 07/10/18 06:19 Large Platelets Not Reportable 07/10/18 06:19 Giant Platelets Not Reportable 07/10/18 06:19 Platelet Satelliting Not Reportable 07/10/18 06:19 Plt Morphology Comment Not Reportable 07/10/18 06:19 RBC Morphology Normal 07/10/18 06:19 Dimorphic RBCs Not Reportable 07/10/18 06:19 Polychromasia Not Reportable 07/10/18 06:19 Hypochromasia Not Reportable 07/10/18 06:19 Poikilocytosis Not Reportable 07/10/18 06:19 Anisocytosis Not Reportable 07/10/18 06:19 Microcytosis Not Reportable 07/10/18 06:19 Macrocytosis Not Reportable 07/10/18 06:19 Spherocytes Not Reportable 07/10/18 06:19 Pappenheimer Bodies Not Reportable 07/10/18 06:19 Sickle Cells Not Reportable 07/10/18 06:19 Target Cells Not Reportable 07/10/18 06:19 Tear Drop Cells Not Reportable 07/10/18 06:19 Ovalocytes Not Reportable 07/10/18 06:19 Helmet Cells Not Reportable 07/10/18 06:19 [place] Bodies Not Reportable 07/10/18 06:19 [place] Rings Not Reportable 07/10/18 06:19 Kevin Cells Not Reportable 07/10/18 06:19 Bite Cells Not Reportable 07/10/18 06:19 Crenated Cell Not Reportable 07/10/18 06:19 Elliptocytes Not Reportable 07/10/18 06:19 Acanthocytes (Spur) Not Reportable 07/10/18 06:19 Rouleaux Not Reportable 07/10/18 06:19 Hemoglobin C Crystals Not Reportable 07/10/18 06:19 Schistocytes Not Reportable 07/10/18 06:19 Malaria parasites Not Reportable 07/10/18 06:19 [place] Bodies Not Reportable 07/10/18 06:19 Hem Pathologist Commnt No 07/10/18 06:19 Sodium 140 mmol/L (137-145) 07/12/18 05:34 Potassium 4.2 mmol/L (3.6-5.0) D 07/12/18 05:34 Chloride 106.0 mmol/L (98-107) 07/12/18 05:34 Carbon Dioxide 21 mmol/L (22-30) L 07/12/18 05:34 Anion Gap 17 mmol/L 07/12/18 05:34 BUN 6 mg/dL (9-20) L 07/12/18 05:34 Creatinine 0.6 mg/dL (0.8-1.5) L 07/12/18 05:34 Estimated GFR > 60 ml/min 07/12/18 05:34 BUN/Creatinine Ratio 10 % 07/12/18 05:34 Glucose 102 mg/dL (75-100) H 07/12/18 05:34 Lactic Acid 2.10 mmol/L (0.7-2.0) H* 07/09/18 17:07 Calcium 8.7 mg/dL (8.4-10.2) 07/12/18 05:34 Magnesium 2.40 mg/dL (1.7-2.3) H 07/09/18 12:16 Total Bilirubin 0.20 mg/dL (0.1-1.2) 07/10/18 06:19 AST 29 units/L (5-40) 07/10/18 06:19 ALT 17 units/L (7-56) 07/10/18 06:19 Alkaline Phosphatase 60 units/L (35-129) 07/10/18 06:19 Total Creatine Kinase 1261 units/L (55-170) H 07/09/18 12:16 Total Protein 7.0 g/dL (6.3-8.2) 07/10/18 06:19 Albumin 3.5 g/dL (3.9-5) L 07/10/18 06:19 Albumin/Globulin Ratio 1.0 % 07/10/18 06:19 Urine Color Yellow (Yellow) 07/09/18 11:37 Urine Turbidity Cloudy (Clear) 07/09/18 11:37 Urine pH 7.0 (5.0-7.0) 07/09/18 11:37 Ur Specific [place] 1.008 (1.003-1.030) 07/09/18 11:37 Urine Protein 100 mg/dl mg/dL (Negative) 07/09/18 11:37 Urine Glucose (UA) Neg mg/dL (Negative) 07/09/18 11:37 Urine Ketones Neg mg/dL (Negative) 07/09/18 11:37 Urine Blood Mod (Negative) 07/09/18 11:37 Urine Nitrite Neg (Negative) 07/09/18 11:37 Urine Bilirubin Neg (Negative) 07/09/18 11:37 Urine Urobilinogen < 2.0 mg/dL (<2.0) 07/09/18 11:37 Ur Leukocyte Esterase Lg (Negative) 07/09/18 11:37 Urine WBC (Auto) 109.0 /HPF (0.0-6.0) H 07/09/18 11:37 Urine RBC (Auto) 28.0 /HPF (0.0-6.0) 07/09/18 11:37 U Epithel Cells (Auto) < 1.0 /HPF (0-13.0) 07/09/18 11:37 Urine Bacteria (Auto) 2+ /HPF (Negative) 07/09/18 11:37 Urine Mucus Few /HPF 07/09/18 11:37 Urine Yeast (Budding) 2+ /HPF 07/09/18 11:37 Valproic Acid 4.8 ug/mL (50-100) L 07/11/18 12:39
--- NOTE | 2018-07-12 13:26 | Progress Note ---
Subjective Date of service: 07/12/18 Interval history: This is a 23-year-old gentleman. The patient is recently transported here from [place], according to the patient and guardian. He has a past medical history of multiple sclerosis, wheelchair-bound, optional bilateral lower extremity quadriplegia, and recently had a suprapubic [place] catheter placed 07-06-[address] Clinton in our group at [facility]. The patient is currently taking cefuroxime. He apparently missed his dose last night. He is brought to the hospital with a family member for evaluation of reported fever. He reportedly had a fever this morning to 101.9, and reportedly had a fever yesterday to 102, taken orally. Mother at bedside spt TO DRAINAGE STONE REMOVED abd soft CTAP - left kidney inflammation a/P multiple sclerosis neurogenic bladder with SPT Objective - Constitutional Vitals: Vital Signs - 12hr 07/12/18 07/12/18 05:01 11:57 Temperature 98.7 F 98.4 F Pulse Rate 83 92 H Respiratory 20 20 Rate Blood Pressure 102/61 106/66 O2 Sat by Pulse 97 97 Oximetry - Labs CBC & Chem 7: 07/11/18 05:53 07/12/18 05:34 Labs: Abnormal lab results 07/12/18 Range/Units 05:34 Carbon Dioxide 21 L (22-30) mmol/L BUN 6 L (9-20) mg/dL Creatinine 0.6 L (0.8-1.5) mg/dL Glucose 102 H (75-100) mg/dL Medications & Allergies - Medications Allergies/Adverse Reactions: Allergies No Known Allergies Allergy (Unverified 07/09/18 10:14) Home Medications: Home Medications Medication Instructions Recorded Confirmed Last Taken Type Cyclobenzaprine [Flexeril] 10 mg PO TID 07/09/18 07/09/18 Unknown History Divalproex ER [DepaKOTE ER] 500 mg PO BID 07/09/18 07/09/18 07/09/18 History HYDROcodone/APAP 5-325 [Kite 0.5 - 1 each PO Q6HR PRN 07/09/18 07/09/18 Unknown History 5/325] Sertraline [Zoloft] 50 mg PO QDAY 07/09/18 07/09/18 07/09/18 History cefUROXime [Ceftin] 500 mg PO BID 07/09/18 07/09/18 07/09/18 History traZODone 100 mg PO HS 07/09/18 07/09/18 Unknown History Active Medications: Generic Name Dose Route Start Last Admin Trade Name Freq PRN Reason Stop Dose Admin Acetaminophen 650 mg 07/09/18 19:37 07/11/18 00:45 Tylenol PO 650 mg Q4H PRN Administration Pain MILD(1-3)/Fever >100.5/MORGAN Cyclobenzaprine HCl 10 mg 07/11/18 14:00 07/12/18 08:48 Flexeril PO 10 mg TID ASHANTI Administration Divalproex Sodium 500 mg 07/11/18 12:00 07/12/18 09:43 Depakote Er PO 500 mg BID ASHANTI Administration Enoxaparin Sodium 40 mg 07/10/18 22:00 07/11/18 22:14 Lovenox SUB-Q 40 mg QDAY@2200 ASHANTI Administration Famotidine 20 mg 07/12/18 22:00 Pepcid PO BID ASHANTI Hydromorphone HCl 0.5 mg 07/09/18 19:37 Dilaudid IV Q3H PRN Pain , Severe (7-10) Dextrose/Sodium Chloride 1,000 mls @ 75 mls/hr 07/09/18 20:00 07/11/18 22:17 D5ns IV 75 mls/hr DIRECT ASHANTI Administration Cefepime HCl 2 gm in 100 mls @ 200 mls/hr 07/11/18 09:00 07/12/18 05:34 Maxipime/Ns 2 Gm/100 Ml IV 200 mls/hr Q8HR ASHANTI Administration Protocol Ondansetron HCl 4 mg 07/09/18 19:37 Zofran IV Q8H PRN Nausea And Vomiting Sertraline HCl 50 mg 07/11/18 12:00 07/12/18 09:43 Zoloft PO 50 mg QDAY ASHANTI Administration Sodium Chloride 10 ml 07/09/18 22:00 07/12/18 09:44 Sodium Chloride Flush Syringe 10 Ml IV 10 ml BID ASHANTI Administration Sodium Chloride 10 ml 07/09/18 19:37 Sodium Chloride Flush Syringe 10 Ml IV PRN PRN LINE FLUSH Trazodone HCl 100 mg 07/11/18 22:00 07/11/18 22:15 Desyrel PO 100 mg HS ASHANTI Administration
[2018-07-12] MEDS: PEPCID PO SCH (21:53)
[2018-07-12] MEDS: DESYREL PO SCH (21:57)
[2018-07-12] MEDS: LOVENOX SUB-Q SCH (21:58)
[2018-07-13] MEDS: MAXIPIME/NS 2 GM/100 ML 2 GM/100 ML BAG IV SCH ×2 (05:40→14:11)
[2018-07-13] MEDS: FLEXERIL PO SCH ×2 (08:04→14:11)
--- NOTE | 2018-07-13 09:11 | Progress Note ---
Assessment and Plan Imaging 07/09/2018 Abdomen/Pelvis CT: Heterogeneous left kidney, presumably pyelonephritis, Liver, spleen, gallbladder, pancreas, adrenals, aorta and IVC within normal limits. No hydronephrosis, though heterogeneous left renal cortical enhancement with somewhat striated appearance noted, 2 canales catheters placed by urology Cultures 07/09/2018 Urine: Pseudomonas Aeruginosa 07/09/2018 Blood: CoNS, 1 out of 4 bottles A/P: 23--year-old male with a past medical history of multiple sclerosis, wheelchair- bound, optional bilateral lower extremity quadriplegia, s/p suprapubic canales catheter placed 07-06-[address] Clinton, [facility], now admitted with: 1. Sepsis on admission: evidenced by leukocytosis, fever, elevated lactic acid and and tachycardia, source most likely urinary tract infection. Blood culutres are pending, Chest xray show no consolidation. 2. Complicated UTI: multiple sclerosis with neurogenic bladder, paraplegia s/p admission to [facility] on 04/29/18 for UTI. Suprapubic catheter and canales catheter placed 07-06-[address] Clinton,, discharged on 05-13-18 on cefuroxime. This admission U/A is consistent with a UTI with large leukocyte esterase.. Urine cultures growing Aeruginosa. CT Abdomen and Pelvis show left pyelonephritis. Currently being treated with Cefepime. Canales catheter removed today by urology. 3. CoNS Bacteremia: 1 out of 4 bottles, likely contaminant. Will proceed with midline placement. 4. Paraplegia: wheelchair bound since 2018 5. Multiple Sclerosis: diagnosed 2016 Plan: -f/u blood cultures -f/u urine cultures -Continue Cefepime 2gms iv every 8 hours, D3 -Patient's caregiver works during the day, will change dosing of antibiotics to Cefepime 2gms IV every 12 hours for total 14 days ending 07-24-18 - Discussion with Tiki and revised case management order placed -f/u ID clinic 07/22/18 [facility] M: [phone] O:[phone] Subjective Date of service: 07/13/18 Interval history: Patient seen and examined. Denies generalized pain, sob or fevers . Stated that he was ready to go home today. Discharge OPAT discussed, patient verbalized understanding. Objective - Exam Narrative Exam: Constitutional: Alert, cooperative. No acute distress Head, Ears, Nose: Normocephalic, atraumatic. External ears, nose normal Eyes: Conjunctivae/corneas clear. No icterus. No ptosis., legally blind Neck: Supple, no meningeal signs Oral: dentition good, no thrush Cardiovascular: S1, S2 normal. Respiratory: Good air entry, clear to auscultation bilaterally GI: Soft, non-tender; bowel sounds normal. No peritoneal signs Gu: +suprapubic cath, clamped, canales catheter removed. CVA tenderness improved Musculoskeletal: parapalegic, lower extremity tremors Skin: No rash or abscess. Hem/Lymphatic: No palpable cervical or supraclavicular nodes. No lymphangitis Psych: Mood ok. Affect normal Neurological: Awake, alert, oriented. - Constitutional Vitals: Vital Signs Temp Pulse Resp BP Pulse Ox 98.5 F 90 20 91/53 97 07/13/18 05:03 07/13/18 05:03 07/13/18 05:03 07/13/18 05:03 07/13/18 05:03 Temperature -Last 24 Hours Temperature 98.5 F Temperature 98.6 F Temperature 98.9 F Temperature 98.4 F - Labs CBC & Chem 7: 07/11/18 05:53 07/12/18 05:34
[2018-07-13] MEDS: PEPCID PO SCH (10:15)
[2018-07-13] MEDS: SODIUM CHLORIDE FLUSH SYRINGE 10 ML IV SCH (10:15)
[2018-07-13] MEDS: ZOLOFT PO SCH (10:15)
--- NOTE | 2018-07-13 14:22 | Progress Note ---
Assessment and Plan Patient is 23 yo with multiple sclerosis with neurogenoic bladder. He had a canales placed months ago and had suprabupic catheter 07/06/[address] Clinton at [facility]. He presented with fever, diagnosed with sepsis due to pyelonephritis on left. He was admitted , put on Cefepime. Urine culture shows Pseudomonas and Dr. Alvarenga recommends Cefepime iv at home until 07/20/18. Today jannie Buck removed canales catheter from penis leaving suprapubic cather to drainage. Patient may dc after iv Cefepime arranged. Complicated UTI/Pyelonephritis left Admitted to Med/Surg patient evaluated by Dr. Lewis ID Physician following Urine culture, growing gram-negative rods, Pseudomonas aurigonosa Continue Cefepime Sepsis Blood cultures drawn Start Cefepime Multiple sclerosis with neurogenic bladder, impaired vision, paraplegia. supportive care Neurogenic bladder, s/p suprapubic catheter placed 07/06/[address] Clinton, clamped. another canales catheter in penis to draining bag. Hypokalemia.resolved after replacement Full code status Subjective Date of service: 07/13/18 Objective - Constitutional Vitals: Vital Signs - 12hr 07/13/18 07/13/18 05:03 12:32 Temperature 98.5 F 98.4 F Pulse Rate 90 87 Respiratory 20 15 Rate Blood Pressure 91/53 124/79 O2 Sat by Pulse 97 99 Oximetry - Labs CBC & Chem 7: 07/11/18 05:53 07/12/18 05:34
--- NOTE | 2018-07-13 14:24 | Discharge Summary ---
Providers - Providers Date of Admission: 07/12/18 11:22 Date of discharge: 07/13/18 Attending physician: CHIKI LISA 07/09/18 Consult to Case Management [CONS] Routine Services Needed at Discharge: Home Health Services Notified:: left copy for cm 07/09/18 13:02 Consult to Physician [CONS] Urgent Comment: OFFICE NOTIFIED [id number] Consulting Provider: KHOA CLINTON Physician Instructions: Reason For Exam: sepsis suprapubic canales 07/10/18 09:35 Consult to Physician [CONS] Routine Comment: Consulting Provider: BREE JUSTICE Physician Instructions: Reason For Exam: Complicated UTI,has suprapubic catheter, MS 07/11/18 09:25 Physical Therapy Evaluation and Treat [CONS] Routine Comment: Reason For Exam: paraplegic needs 07/11/18 15:45 Consult to Case Management [CONS] Routine Services Needed at Discharge: Home Health Services Notified:: copy left for Additional Physician Instructions: [facility] M [phone] O [phone] F [phone] OUTPATIENT PARENTERAL ANTIBIOTIC THERAPY ORDERS Diagnoses: Complicated UTI-left pyelonephritis Antimicrobial administration: --Patient's caregiver works during the day, will change dosing of antibiotics to Cefepime 2gms IV every 12 hours for total 14 days ending 07-24-18 Lines: midline Lab monitoring: CBC, BUN, Creatinine, ALT, AST, once a week preferly on Thursday morning. Please fax results to [phone] and call [phone] for critical lab results. Chichi Cheng NP/Bree Alvarenga MD Date: 07/13/18 07/12/18 12:11 PICC Line Placement [Consult to PICC Line RN] [CONS] Routine Reason For Exam: OPAT Type Line:: Midline Hospitalization Condition: Good Pertinent studies: CT abdomen/pelvis CXR Hospital course: This is a 23 year old male with a past medical history of multiple sclerosis diagnosed on 2016, wheelchair-bound, bilateral lower extremity quadriplegia, s/p suprapubic canales catheter placed 07-06-[address] Clinton, [facility], who was brought to the hospital on 07/09/18 for evaluation of fever. He was taking cefuroxime, but missed a dose night prior admission. On admission , WBC 15.3, Creatinine 0.7, Lactic acid 2.60, CK 1261, Highest temperature 103.6, HR 109, BP 108/70, U/A is consistent with a UTI, with large leukocyte esterase. Chest xray showed no consolidation. Abdomen and pelvis CT shows Heterogeneous left kidney, presumably pyelonephritis, No hydronephrosis, though heterogeneous left renal cortical enhancement with somewhat striated appearance noted, Urine cultures were drawn and show Pseudomonas Aeruginosa, Blood cultures showed no growth thus far. Id recommended to treat him with Cefepime iv total 14 days ending 07-24-18. Home IV abx was arranged and then patient was discharged home with HH in stable condition. Discharge diagnosis and management: /Complicated UTI/Pyelonephritis left Admitted to Med/Surg, patient evaluated by Dr. Lewis, ID Physician Urine culture grew growing gram-negative rods, Pseudomonas aurigonosa Placed on iv Cefepime, then discharged with Cefepime 2gms IV every 12 hours for total 14 days ending 07-24-18 to complete regimen /Sepsis, due to UTI Blood cultures negative Patient's caregiver works during the day, changed dosing of antibiotics on discharge to Cefepime 2gms IV every 12 hours for total 14 days ending 07-24-18 /Multiple sclerosis with neurogenic bladder, impaired vision, paraplegia. provided supportive care /Neurogenic bladder, s/p suprapubic catheter placed 07/06/[address] Clinton, clamped. another canales catheter in penis to draining bag. Will cont outpt follow up with urologist /Hypokalemia. resolved after replacement /Full code status Disposition: DC/[place]-06 HOME UNDER [facility] Time spent for discharge: 34 minutes Core Measure Documentation - Palliative Care Palliative Care/ Comfort Measures: Not Applicable - Core Measures Any of the following diagnoses?: none Exam - Physical Exam Narrative exam: GEN: Not in acute distress, HEENT: Normocephalic, atraumatic, Neck: supple, No JVD Lungs: Clear to auscultation bilaterally, Abd: soft, non tender, suprapubic catheter clamped, normal bowel sounds : Canales catheter Ext: No edema, no clubbing, no cyanosis Neuro: Awake,alert,oriented x 3, paraplegia from MS, Impaired vision Skin: No rash - Constitutional Vitals: Temp Pulse Resp BP Pulse Ox 98.4 F 87 15 124/79 99 07/13/18 12:32 07/13/18 12:32 07/13/18 12:32 07/13/18 12:32 07/13/18 12:32 Plan Activity: up only with assistance (wheel chair bound) Weight Bearing Status: Non-Weight Bearing Diet: regular Follow up with: TEE REYES MD [Referring] - 3-5 Days
[2018-07-13 18:07] VITALS: BP 120/63
== END 2018-07-13 19:00 | disposition home health service (06) | DRG 872 ==
LOC: ED 10:08 → 3A 14:09 → OBSVTOIN 07-12 11:22
PROVIDERS: ADMIT Internal Medicine; ATTEND Internal Medicine
PROC: 05HY33Z Insertion of Infusion Device into Upper Vein, Percutaneous Approach (ICD-10-PCS; principal; 2018-07-12)
DX: A41.1 Sepsis due to other specified staphylococcus (principal); G35 Multiple sclerosis; M62.82 Rhabdomyolysis; G82.20 Paraplegia, unspecified; N12 Tubulo-interstitial nephritis, not specified as acute or chronic; N31.9 Neuromuscular dysfunction of bladder, unspecified; B96.5 Pseudomonas (aeruginosa) (mallei) (pseudomallei) as the cause of diseases classified elsewhere; E87.6 Hypokalemia; Z99.3 Dependence on wheelchair; Z87.891 Personal history of nicotine dependence
CPT/HCPCS: 36415; 71045; 74177; 80048; 80053; 80164; 81001; 82140; 82550; 83735; 85007; 85025; 85027; 87040; 87076; 87086; 87186; 96365; 99285; G0378; J0692; J0696; J1650; J7030; J7042; Q9967